=== PATIENT | female | born 1950 | race Caucasian/White ===

== ENCOUNTER → 2018-04-11 | Outpatient (CLI) | payer OTHER ==
[~2018-04-11] MED LIST: CALC-354 PO; FAMO20TA11 PO; MULT-506 PO; OMEG1CAP71 PO
[2018-04-11 13:13] LABS: BASO % 0.4 %; BASO ABS # 0.03 K/uL (0-0.2); EOS % 0.7 %; EOS ABS # 0.05 K/uL (0-0.5); HEMATOCRIT 41.9 % (37-47); HEMOGLOBIN 13.7 g/dL (12.0-16.0); IG# 0.01 K/uL (0.00-0.02); LYMPH % 22.5 %; LYMPH ABS # 1.59 K/uL (1.2-3.4); MEAN CELL VOLUME 87.3 fL (80-100); MEAN CORPUSCULAR HEMOGLOBIN 28.5 pg (25-34); MEAN CORPUSCULAR HGB CONC 32.7 g/dl (32-36); MONO % 4.7 %; MONO ABS # 0.33 K/uL (0.11-0.59); NEUT % 71.6 %; NEUT ABS # 5.07 K/uL (1.4-6.5); PLATELET COUNT 172 K/uL (130-400); RED CELL DISTRIBUTION WIDTH CV 13.4 % (11.5-14.5); RED CELL DISTRIBUTION WIDTH SD 42.6 fL (36.4-46.3); WHITE BLOOD COUNT 7.08 K/uL (4.8-10.8)
[2018-04-11 13:37] LABS: PTT PATIENT 27.6 SECONDS (21.0-31.0)
[2018-04-11 14:49] LABS: BLOOD UREA NITROGEN 15 mg/dl (7-18); CARBON DIOXIDE 29 mmol/L (21-32); CREATININE 0.84 mg/dl (0.60-1.20); GLUCOSE 137 mg/dl (70-99); POTASSIUM 3.8 mmol/L (3.5-5.1); SODIUM 141 mmol/L (136-145)
== END | disposition home or self-care (01) ==
LOC: C.CPL 12:20
PROVIDERS: ATTEND Plastic Surgery
DX: Z01.818 Encounter for other preprocedural examination (principal); C44.311 Basal cell carcinoma of skin of nose

== ENCOUNTER → 2018-04-22 | Day surgery (SDC) | payer OTHER ==
[2018-04-14 11:25] VITALS: Ht 162.6 cm; Wt 68.2 kg
[~2018-04-22] VITALS: Ht 162.6 cm; Wt 68.2 kg
[~2018-04-22] MED LIST changes: +ATROPINE SULFATE 0.1 MG/ML 5ML SYR IV PRN; +BSS FLUSH ONE; +CEFAZOLIN 2000MG IV PUSH 15 ML IV SCH; +DEXAMETHASONE SOD INJ 4 MG/ML VIAL ONE; +EpHEDrine SULFATE INJ 50 MG/ML AMP IV PRN; +FENTANYL CITRATE INJ 50 MCG/1 ML 2 ML VIAL IV PRN; +FENTANYL CITRATE INJ 50 MCG/1 ML 2 ML VIAL ONE; +GENTIAN VIOLET TOP SOLN 60 APPLN/59 ML BTL TOP ONE; +LACTATED RINGER'S 1000ML 1,000 ML IV SCH; +LIDOCAINE HCL 2% 2 ML VIAL (20MG/ML) ONE; +LIDOCAINE/EPINEPHRINE 1% 20 ML VIAL ONE; +METOCLOPRAMIDE HCL INJ 5 MG/ML 2 ML VIAL IV PRN; +MIDAZOLAM HCL 1 MG/ML 2ML VIAL ONE; +ONDANSETRON INJ 2 MG/ML 2 ML VIAL IV PRN; +ONDANSETRON INJ 2 MG/ML 2 ML VIAL ONE; +OXYCODONE/ACETAMINOPHEN 5-325 TAB PO PRN; +POVIDONE-IODINE OP SOLN 30 ML BTL ONE; +PROPOFOL IV EMULSION 10 MG/ML 20 ML VIAL ONE; +SODIUM CHLORIDE 0.9% 1000ML 1,000 ML IV SCH
--- NOTE | 2018-04-22 08:28 | History & Physical Bridge - [place] ---
H&P Re-Evaluation Bridge Note: I have examined the patient, reviewed the History & Physical and in the interval since the performance of the History & Physical I have noted the following changes of clinical significance: No changes noted
--- NOTE | 2018-04-22 10:10 | [facility] Post Operative Brief Note ---
Immediate Operative Summary Operative Date Apr 22, 2018. Pre-Operative Diagnosis Basal Cell CA Right Side of Nose Post-Operative Diagnosis same Procedure(s) Performed Right Side Of Nose Basal Cell Carcinoma Excision With Frozen Section And Full Thickness Skin Graft Closure With Graft Taken From Right Neck Surgeon Dr. Fidelia Benavides Molded [employer] Cutter Surgeon(s) Peyton Huston PA-C Estimated Blood Loss 1CC Findings See Below superficial micronodular BCC, margins negative Specimens A. Basal Cell CA Right Nasal Ala--suture meza 12:00 sent to Lab for Frozen Section Anesthesia Type MAC Complication(s) none Disposition Disposition: Recovery Room / PACU
--- NOTE | 2018-04-22 10:12 | Discharge Instructions ---
Discharge Instructions Date of Service Apr 22, 2018. Admission Reason for Admission: Right Side Of Nose Basal Cell Ca Discharge Discharge Diagnosis / Problem: basal cell skin cancer Discharge Goals Goal(s): Decrease discomfort, Improve function Activity Recommendations Activity Limitations: per Instructions/Follow-up section ACTIVITY RECOMMENDATIONS: __Normal activities _x_No bending, lifting or straining __No driving _x_Driving allowed when you are off pain medications if you have no visual impairments from dressing on nose _x_Walking permitted __You should have help at home for ___ days DRESSINGS: __No dressings required _x_Keep dressings dry/in place until first office visit __Remove dressings ___ and leave dressings off __Apply ice ___ days __Remove dressings and reapply garment __Apply antibiotic ointment (Bacitracin, Neosporin, etc) to wounds 3-4 times/ day for 10 days BATHING: _x_Keep dressings dry _x_Sponge bathing permitted- do not get nose wet __Showering permitted _x_No swimming, hot tubs or soaking in a tub MEDICATIONS: Resume previous medications unless instructed otherwise by your surgeon. _x_Do not use aspirin, Motrin, Advil or Ibuprofen as these may promote bleeding. Please use Tylenol. _x_Prescription(s) provided: Bactrim sent to [facility] today. begin today. pain medication was provided at your last office visit OTHER INSTRUCTIONS: __Record drain output 2-3 times per day SPECIAL CARE INSTRUCTIONS: * It is normal to have a mild fever after surgery. If your temperature is higher than 101.5 degrees F, please call the office at [phone]. * Constipation is a typical side effect of pain medication. An over-the- counter stool softener will help relieve this. * Leaking around surgical drains may occur and should not cause concern. Sometimes these drains become clogged. If this happens, remove the bulb and milk the clot out of the tube, then replace the bulb. * Drainage from wounds after liposuction is normal and should be expected. Garments will become soiled. You should protect furniture and bedding. This drainage should mostly subside within 2-3 days. Leave garments in place unless instructed to remove them. * If you have unusual drainage from a wound or are concerned you have an infection or have any questions or concerns, please call the office at [phone]. FOLLOW UP VISIT: If not already scheduled, please call the office, , when you return home after surgery to schedule an appointment to be seen in _5-7__ days. . Current Hospital Diet Patient's current hospital diet: Discharge Diet Recommended Diet: Regular Diet Procedures Procedures Performed: Right Side Of Nose Basal Cell Carcinoma Excision With Frozen Section And Full Thickness Skin Graft Closure With Graft Taken From Right Neck Pending Studies Studies pending at discharge: yes List of pending studies: final pathology Medical Emergencies . Who to Call and When: Medical Emergencies: If at any time you feel your situation is an emergency, please call 911 immediately. . Non-Emergent Contact Non-Emergency issues call your: Primary Care Provider, Surgeon . "Provider Documentation" section prepared by Peyton Perez. . [place] Drug Monitoring Program Search Results: no issues identified
[2018-04-22 10:15] VITALS: TEMP 36.3
--- NOTE | 2018-04-22 10:32 | Anesthesia Progress Nt - [facility] ---
Anesthesia Post Op Note Date & Time Apr 22, 2018 at 10:32 Vital Signs Pain Intensity: 0 Vital Signs Past 12 Hours Date Time Temp Pulse Resp B/P (MAP) Pulse Ox O2 Delivery O2 Flow Rate FiO2 04/22/18 10:15 36.3 53 12 123/68 (86) 96 Room Air 04/22/18 07:22 36.4 59 16 138/69 (92) 96 Room Air Notes Mental Status: alert / awake / arousable, participated in evaluation Pt Amnestic to Procedure: Yes Nausea / Vomiting: adequately controlled Pain: adequately controlled Airway Patency, RR, SpO2: stable & adequate BP & HR: stable & adequate Hydration State: stable & adequate Anesthetic Complications: no major complications apparent
[2018-04-22] MEDS: ACETAMINOPHEN 325 MG TAB PO PRN ×2 (10:50→10:52)
[2018-04-22 11:01] VITALS: BP 130/81; PULSE 51; O2SAT 96
--- NOTE | 2018-04-22 13:18 | OPERATIVE REPORT ---
DATE OF OPERATION: 04/22/2018 PREOPERATIVE DIAGNOSIS: Basal cell carcinoma, right nose. POSTOPERATIVE DIAGNOSIS: Basal cell carcinoma, right nose. PROCEDURE: Excision basal cell carcinoma, right nose with frozen section and placement of full thickness graft. SURGEON: Anna Benavides MD. REPAIR TECH: Peyton Perez PA-C. ANESTHESIA: Local with sedation. COMPLICATIONS: None. 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 This was biopsied and noted to be a superficial and nodular basal cell carcinoma. It was recommended that she have Mohs surgery performed. However, she did not want to have this procedure performed as it would require travel to [place]. She elected instead to be evaluated by me for excision with frozen section. We had a lengthy consultation in the office about the procedure, expectations, and possible outcomes. She was insistent on having skin grafting performed as opposed to possible flap reconstruction. We did discuss risks such as contour deformity and color mismatch as well as texture mismatch and additional scarring by performing this procedure. BRIEF DESCRIPTION OF THE PROCEDURE: Risks, benefits, and alternatives of the procedure were explained to the patient who agreed and signed consent. She was identified and marked in the preoperative holding area. She was brought to the operating room. She was positioned supine and placed under sedation without incident. Surgical site was prepped and draped sterilely. A time-out procedure was performed. I began by anesthetizing the right inferior lateral neck which was they agreed upon site for harvest of her full thickness graft. This was anesthetized with 1% lidocaine with epinephrine. I then anesthetized the excision site on the right nose. Lesion was noted to be along the alar rim on the right. 1% lidocaine with epinephrine was used to anesthetize this as well. A 15 blade scalpel was used to perform excision. This was essentially performed almost as a saucerization in order to improve the cosmesis. We sent a specimen to the lab with suture marking 12 o'clock. The frozen section report was called and showed a residual micronodular basal cell and superficial basal cell carcinoma. All margins negative. The graft was harvested, and donor site was closed using 5-0 Monocryl interrupted dermal sutures and 5-0 Monocryl running subcuticular suture. Dermabond was applied. The graft was prepared by my physician driller's assistant using a curved iris scissor to the defat the graft. The graft was placed into the recipient bed and sutured into place using 5-0 silk interrupted tie over bolster sutures and 6-0 plain gut suture. A small Xeroform bolster was then placed. The graft was then further dressed with Xeroform and a Band-Aid. The procedure was tolerated well. The patient was awakened and transferred to the recovery in satisfactory condition. I attest to the content of the Intraoperative Record and any orders documented therein. Any exception s are noted below.
== END | disposition home or self-care (01) ==
LOC: X.SURG 06:32
PROVIDERS: ATTEND Plastic Surgery
DX: C44.311 Basal cell carcinoma of skin of nose (principal); K21.9 Gastro-esophageal reflux disease without esophagitis; M19.90 Unspecified osteoarthritis, unspecified site